=== PATIENT | male | born 1965 | race Caucasian/White ===

== ENCOUNTER 2018-11-07 11:26 | Outpatient (CLI) | payer BC ==
[~2018-11-07] VITALS: Ht 172.7 cm; Wt 106.6 kg
[2018-11-07] MEDS ORDERED: ASPI-586 PO (11:49)
== END 2018-11-07 12:18 | disposition home or self-care (01) ==
LOC: PREOP 11:26
PROVIDERS: ATTEND Surgery
DX: Z01.818 Encounter for other preprocedural examination (principal)

== ENCOUNTER 2018-11-14 09:17 | Day surgery (SDC) | payer BC ==
[~2018-11-14] VITALS: Ht 172.7 cm; Wt 106.6 kg
[~2018-11-14 09:17] MED LIST: ASPI-586 PO
[2018-11-14] MEDS ORDERED: LACTATED RINGERS 1,000 ML IV PRN (09:26)
[2018-11-14 09:30] VITALS: BP 146/86
[2018-11-14] MEDS ORDERED: ceFAZolin 2 GM IV Premixed 50 ML IV ONE (09:30)
--- NOTE | 2018-11-14 09:43 | Progress Note-Pre Operative ---
Pre-Operative Progress Note H&P Reviewed The H&P was reviewed, patient examined and no changes noted. Date Seen by Provider: Nov 14, 2018 Time Seen by Provider: 09:40 Date H&P Reviewed: Nov 14, 2018 Time H&P Reviewed: 09:40 Pre-Operative Diagnosis: symptomatic reducible umbilical hernia RENZO SHARPE MD Nov 14, 2018 09:43
[2018-11-14] MEDS ORDERED: ACETAMINOPHEN 325 MG TABLET PO PRN (09:45)
[2018-11-14] MEDS ORDERED: ONDANSETRON 4 MG/2 ML (SDV) Z0FRAN IVP PRN ×2 (09:45→13:00)
[2018-11-14] MEDS ORDERED: oxyCODONE/APAP 5/325MG (PERCOCET 5) TABLET PO PRN (09:45)
[2018-11-14] MEDS ORDERED: morphine INJ 10 MG/ML 1ML (SYR OR VIAL) IVP PRN (09:45)
[2018-11-14] MEDS ORDERED: HYDR-34 PO (09:47)
--- NOTE | 2018-11-14 09:48 | Discharge Inst-Surgical ---
D/C Lap Instructions-DELL New, Converted, or Re-Newed RX: RX on Chart Follow Up Appt in 2 weeks Activity as tolerated No driving for 24 hours No driving while on pain medications Incentive Spirometry use every 2 hours while awake Regular Diet Symptoms to Report: Fever over 101 degree F, Nausea/Vomiting Infection Signs and Symptoms to report: Increased redness, Foul odor of wound, Increased drainage Bathing instructions: May shower Operative Area Clean/Dry; Keep incision clean/dry If any problems/questions: Contact your physician or go to Emergency Room RENZO SHARPE MD Nov 14, 2018 09:48
[2018-11-14] MEDS ORDERED: BUP/EPI 0.5% 1:200,000 (SENSORCAINE) 30 ML VIAL ONE (10:28)
--- OUTSIDE RECORDS SUMMARY | 2018-11-14 10:52 | XMS REPORT | Continuity of Care Document ---
Author Author [facility] Address Unknown Phone Unavailable Allergies Active Description Code Type Severity Reaction Onset Reported/Identified Relationship to Patient Clinical Status Yes NO KNOWN DRUG ALLERGIES NO KNOWN DRUG ALLERG UNKNOWN Yes NO KNOWN DRUG ALLERGIES UNKNOWN NO KNOWN DRUG ALLERG Yes No Known Drug Allergies [id number] Drug Allergy Unknown N/A 11/07/2018 Medications Medication Packaging Start Date Stop Date Route Dosage Sig SMZ/TMP DS TAB (SEPTRA DS) (Bactrim DS) TAB 01/21/2017 01/21/2017 ONCE&1941 TETANUS,DIPTH,PERT ADULT INJ 0 (ADACEL SYRINGE) ml 01/21/2017 01/21/2017 ONCE&1942 NORMAL SALINE 250CC IV BAG INJ 0.9 % (NS 250CC IV BAG) ml 01/22/2017 01/22/2017 ONCE&0957 NORMAL SALINE 1000CC IV BAG INJ 0.9 % (NS 1000CC IV BAG) ml 04/08/2018 04/08/2018 ONCE&2128 PROCHLORPERAZINE VIAL INJ 10 MG/2CC (COMPAZINE VIAL) MG 04/08/2018 04/08/2018 ONCE&2229 NORMAL SALINE 500CC IV BAG INJ 0.9 % (NS 500CC IV BAG) ml 04/08/2018 04/08/2018 ONCE&2252 Problems Date Dx Coded Attending Type Code Diagnosis Diagnosed By 01/21/2017 JOMAR TABARES 682.3 CELLULITIS AND ABSCESS OF UPPER ARM AND FOREARM 01/21/2017 JOMAR TABARES L02.412 CUTANEOUS ABSCESS OF LEFT AXILLA 01/22/2017 Peter Quinones 682.3 CELLULITIS AND ABSCESS OF UPPER ARM AND FOREARM 01/22/2017 Peter Quinones L03.112 CELLULITIS OF LEFT AXILLA 12/28/2017 Scarlet Weaver 272.4 OTHER AND UNSPECIFIED HYPERLIPIDEMIA 12/28/2017 Scarlet Weaver 796.2 ELEVATED BLOOD PRESSURE READING WITHOUT DIAGNOSIS OF HYPERTENSION 12/28/2017 Scarlet Weaver W E78.5 HYPERLIPIDEMIA, UNSPECIFIED 12/28/2017 Scarlet Weaver W R03.0 ELEVATED BLOOD-PRESSURE READING, WITHOUT DIAGNOSIS OF HYPERTENSION 12/28/2017 Scarlet Weaver W 272.4 OTHER AND UNSPECIFIED HYPERLIPIDEMIA 12/28/2017 Scarlet Weaver W 796.2 ELEVATED BLOOD PRESSURE READING WITHOUT DIAGNOSIS OF HYPERTENSION 12/28/2017 Scarlet Weaver W E78.5 HYPERLIPIDEMIA, UNSPECIFIED 12/28/2017 Scarlet Weaver W R03.0 ELEVATED BLOOD-PRESSURE READING, WITHOUT DIAGNOSIS OF HYPERTENSION 04/08/2018 RAYSAJOMAR A 276.51 DEHYDRATION 04/08/2018 RAYSAJOMAR W 346.90 MIGRAINE, UNSPECIFIED, WITHOUT MENTION OF INTRACTABLE MIGRAINE, WITHOUT MENTION OF STATUS MIGRAINOSUS 04/08/2018 CHRISTIANOJANESJOMAR LAWSON E86.0 DEHYDRATION 04/08/2018 CHRISTIANOJANESJOMAR LAWSON G43.909 MIGRAINE, UNSP, NOT INTRACTABLE, WITHOUT STATUS MIGRAINOSUS 11/08/2018 DELL LU, RENZO Ot Z01.818 ENCOUNTER FOR OTHER PREPROCEDURAL EXAMIN Procedures There is no data. Results Test Result Range Thyroid Stimulating Hormone - 11/17/16 05:45 TSH 1.37 mIU/mL 0.32-5.00 BMP - 01/22/17 10:11 Anion Gap 13 6-14 BUN 15 mg/dL 5-25 Calcium 9.2 mg/dL 8.3-10.4 Chloride 107 mmol/L 95-114 CO2 23 mEq/L 22-33 Creat 1.48 mg/dL 0.50-1.50 eGFR 50 mL/min/1.73m2 >59 Glucose 164 mg/dL 70-110 Osmo 291 280-295 Potassium 4.1 mmol/L 3.5-5.3 Sodium 139 mmol/L 134-148 Thyroid Stimulating Hormone - 12/28/17 09:39 TSH 1.12 mIU/mL 0.32-5.00 PSA Yearly Screen - 12/28/17 09:39 PSA TOTAL 1.3 ng/mL 0.0-4.0 Comprehensive Metabolic Panel - 04/08/18 21:45 Albumin 3.8 g/dL 3.6-5.1 ALP 48 U/L 35-130 ALT 26 U/L 6-45 Anion Gap 15 6-14 AST 18 U/L 2-40 BUN 15 mg/dL 5-25 Calcium 9.3 mg/dL 8.3-10.4 Chloride 109 mmol/L 95-114 CO2 21 mEq/L 22-33 Creat 1.15 mg/dL 0.50-1.50 eGFR 66 mL/min/1.73m2 >59 Globulin 3.0 g/dL 2.3-3.5 Glucose 108 mg/dL 70-110 Osmo 292 280-295 Potassium 4.3 mmol/L 3.5-5.3 Sodium 141 mmol/L 134-148 TBil 0.4 mg/dL 0.2-1.2 TP 6.8 g/dL 6.0-8.3 Encounters ACCT No. Visit Date/Time Discharge Status Pt. Type Provider Facility Loc./Unit Complaint [id number] 07/16/2015 13:50:22 07/16/2015 23:59:59 CLS Outpatient Frank Lau [id number] 04/08/2018 21:02:00 04/08/2018 23:40:00 DIS Outpatient [facility] ER [id number] 12/28/2017 09:32:00 12/28/2017 23:59:00 DIS Outpatient Scarlet Weaver [id number] 01/22/2017 09:35:00 01/22/2017 12:20:00 DIS Outpatient Peter Quinones [id number] 01/21/2017 19:26:00 01/21/2017 20:24:00 DIS Outpatient [facility] ER [id number] 11/17/2016 05:52:00 11/17/2016 23:59:00 DIS Outpatient Scarlet Weaver [id number] 01/21/2017 19:42:25 Document Registration [id number] 11/07/2018 11:26:00 11/07/2018 12:18:00 DIS Outpatient RENZO SHARPE MD Via [facility] PREOP OPEN UMBILICAL HERNIA REPAIR [id number] 01/21/2014 09:03:00 01/21/2014 15:00:00 DIS Outpatient [id number] 01/15/2014 07:19:00 01/15/2014 23:59:59 CLS Outpatient [id number] 11/14/2018 09:17:00 ACT Outpatient DELL LU, RENZO Reynoso [facility] SDC UMBILICAL HERNIA
--- OUTSIDE RECORDS SUMMARY | 2018-11-14 10:52 | XMS REPORT | CCD ---
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 Weight Measured 235 lbs 03/22/2015 11:20 Initial VS Height 68 in 03/22/2015 11:20 Initial VS BMI (Body Mass Index) 35.73 kg/m^2 03/22/2015 11:20 Initial VS BSA (Body Surface Area) 2.26 m^2 03/22/2015 11:20 Initial VS BP Systolic 137 mmHg 03/22/2015 11:20 Initial VS BP Diastolic 78 mmHg 03/22/2015 11:20 Initial VS Respiratory Rate 20 bpm 03/22/2015 11:20 Initial VS Heart Rate 71 bpm 03/22/2015 11:20 Initial VS O2 % BldC Oximetry 97 % 03/22/2015 11:20 Initial VS Body Temperature 97.1 degrees 03/22/2015 11:20 Initial VS BP Systolic 150 mmHg 04/15/2015 14:45 Most Recent VS BP Diastolic 97 mmHg 04/15/2015 14:45 Most Recent VS Respiratory Rate 18 bpm 04/15/2015 14:45 Most Recent VS Heart Rate 75 bpm 04/15/2015 14:45 Most Recent VS O2 % BldC Oximetry 95 % 04/15/2015 14:45 Most Recent VS Body Temperature 97.9 degrees 04/15/2015 14:45 Most Recent VS Allergies Allergy Code Allergy Type Reaction Status No Known Drug Allergies 0 No known drug allergies Active Procedures Procedure Code Procedure Type Date REVISION OF HIP REPLACEMENT, ACETAB 0071 ICD-9 CM, Volume 3 04/13/2015 HIP BEARING SURFACE METAL ON POLY 0074 ICD-9 CM, Volume 3 04/13/2015 PT GROUP THERAPY 519258187 SNOMED CT 04/15/2015 PT GAIT TRAINING/STAIRS EA [address] 04/15 PT GROUP THERAPY 720013294 SNOMED CT 04/15/2015 OT EVALUATION 519306101 SNOMED CT 04/14/2015 PT GROUP THERAPY 639059333 SNOMED CT 04/14/2015 PT GAIT TRAINING/STAIRS EA [address] 04/14 PT GROUP THERAPY 099444137 SNOMED CT 04/14/2015 PT THERAPEUTIC ACT. ONE ON ONE EA [address] 04/13/2015 PT EVALUATION 221180108 SNOMED CT 04/13/2015 HIP [address] 04/13/2015 BEDSIDE GLUCOSE 42757655 SNOMED CT 04/15/2015 BEDSIDE GLUCOSE 01086444 SNOMED CT 04/15/2015 BEDSIDE GLUCOSE 36144286 SNOMED CT 04/14/2015 BEDSIDE GLUCOSE 63029706 SNOMED CT 04/14/2015 BEDSIDE GLUCOSE 99185536 SNOMED CT 04/14/2015 BEDSIDE GLUCOSE 11046486 SNOMED CT 04/13/2015 BEDSIDE GLUCOSE 05460552 SNOMED CT 04/14/2015 BEDSIDE GLUCOSE 64000298 SNOMED CT 04/13/2015 BEDSIDE GLUCOSE 45308755 SNOMED CT 04/13/2015 BASIC METABOLIC PANEL 233721443 SNOMED CT 04/15/2015 BASIC METABOLIC PANEL 119292486 SNOMED CT 04/14/2015 CBC W/ AUTO DIFF (RFLX MAN DIFF IF IND) 6056555 SNOMED CT 04/15/2015 CBC W/ AUTO DIFF (RFLX MAN DIFF IF IND) 4693727 SNOMED CT 04/14/2015 BEDSIDE GLUCOSE 93391548 SNOMED CT 04/13/2015 INCENTIVE SPIROMETRY EA [address] 04/2015 OXYGEN/HOUR 452188829 SNOM[address] CT 04/13/2015 BAN AERO ECLIPSE TREATMENT 85824313 SNOMED CT 04/13/2015 BAN AERO ECLIPSE TREATMENT 03621782 SNOMED CT 04/13/2015 BAN AERO ECLIPSE TREATMENT 36940800 SNOMED CT 04/14/2015 BAN AERO ECLIPSE TREATMENT 42967917 SNOMED CT 04/14/2015 BAN AERO ECLIPSE TREATMENT 35835565 SNOMED CT 04/15/2015 BAN AERO ECLIPSE TREATMENT 53635297 SNOMED CT 04/15/2015 ^CBC W/AUTO DIFF 9588989 SNOMED CT 04/14/2015 ^CBC W/AUTO DIFF 6025518 SNOMED CT 04/15/2015 History of Immunizations Unknown or Not Available. 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 Post op pain 927511344 04/13/2015 Active Results BASIC METABOLIC PANEL - Collect Date/Time: 04/15/2015 06:05 Test Name Code Test Result Test Units Test Ref Range GLUCOSE 2345-7 113 MG/DL L=70 H=100 SODIUM 2951-2 140 MEQ/L L=135 H=148 POTASSIUM 2823-3 4.1 MEQ/L L=3.5 H=5.3 CHLORIDE 2075-0 108 MEQ/L L=96 H=110 CO2 2028-9 22 MEQ/L L=22 H=29 BUN 3094-0 14 MG/DL L=8 H=22 CREATININE 2160-0 1.1 MG/DL L=0.6 H=1.6 CALCIUM 54943-4 8.9 MG/DL L=8.2 H=10.6 AGE 50 yrs GFR NonAA 70 GFR AA 85 eGFR >60 N/A eGFR AA* >60 N/A BASIC METABOLIC PANEL - Collect Date/Time: 04/14/2015 05:55 Test Name Code Test Result Test Units Test Ref Range GLUCOSE 2345-7 108 MG/DL L=70 H=100 SODIUM 2951-2 138 MEQ/L L=135 H=148 POTASSIUM 2823-3 4.2 MEQ/L L=3.5 H=5.3 CHLORIDE 2075-0 109 MEQ/L L=96 H=110 CO2 2028-9 21 MEQ/L L=22 H=29 BUN 3094-0 13 MG/DL L=8 H=22 CREATININE 2160-0 1.1 MG/DL L=0.6 H=1.6 CALCIUM 03557-0 8.6 MG/DL L=8.2 H=10.6 AGE 50 yrs GFR NonAA 70 GFR AA 85 eGFR >60 N/A eGFR AA* >60 N/A BEDSIDE GLUCOSE - Collect Date/Time: 04/14/2015 21:10 Test Name Code Test Result Test Units Test Ref Range GLUCOSE POCT 131 MG/DL L=70 H=100 BEDSIDE GLUCOSE - Collect Date/Time: 04/14/2015 17:51 Test Name Code Test Result Test Units Test Ref Range GLUCOSE POCT 128 MG/DL L=70 H=100 BEDSIDE GLUCOSE - Collect Date/Time: 04/14/2015 12:14 Test Name Code Test Result Test Units Test Ref Range GLUCOSE POCT 103 MG/DL L=70 H=100 BEDSIDE GLUCOSE - Collect Date/Time: 04/14/2015 06:03 Test Name Code Test Result Test Units Test Ref Range GLUCOSE POCT 107 MG/DL L=70 H=100 BEDSIDE GLUCOSE - Collect Date/Time: 04/13/2015 20:43 Test Name Code Test Result Test Units Test Ref Range GLUCOSE POCT 173 MG/DL L=70 H=100 BEDSIDE GLUCOSE - Collect Date/Time: 04/13/2015 17:38 Test Name Code Test Result Test Units Test Ref Range GLUCOSE POCT 124 MG/DL L=70 H=100 BEDSIDE GLUCOSE - Collect Date/Time: 04/13/2015 10:20 Test Name Code Test Result Test Units Test Ref Range GLUCOSE POCT 128 MG/DL L=70 H=100 BEDSIDE GLUCOSE - Collect Date/Time: 04/13/2015 06:50 Test Name Code Test Result Test Units Test Ref Range GLUCOSE POCT 107 MG/DL L=70 H=100 CBC W/ AUTO DIFF (RFLX MAN DIFF IF IND) - Collect Date/Time: 04/15/2015 06:05 Test Name Code Test Result Test Units Test Ref Range WBC 11927-4 8.7 TH/CMM L=4.5 H=10.8 RBC 789-8 4.04 ML/CMM L=4.70 H=6.10 HGB 718-7 11.9 G/DL L=14.0 H=18.0 HCT 4544-3 35.9 % L=42.0 H=52.0 MCV 89 FL L=81 H=99 MCH 29.5 PG L=27.0 H=33.0 MCHC 33.1 G/DL L=31.0 H=36.0 RDW SD 41 FL L=36 H=50 RDW CV 12.8 % L=0.0 H=14.8 MPV 10.8 FL L=9.3 H=12.5 PLT 777-3 193 TH/CMM L=130 H=440 NRBC# 0.00 TH/CMM L=0.00 H=0.00 NRBC% 0.0 /100WBC L=0.0 H=2.0 %NEUT 69.8 % %LYMP 19.3 % %MONO 7.5 % %EOS 3.3 % %BASO 0.1 % #NEUT 6.07 TH/CMM L=2.10 H=8.20 #LYMP 1.68 TH/CMM L=0.90 H=5.20 #MONO 0.65 TH/CMM L=0.16 H=1.00 #EOS 0.29 TH/CMM L=0.00 H=0.80 #BASO 0.01 TH/CMM L=0.00 H=0.20 MANUAL DIFF NOT IND N/A CBC W/ AUTO DIFF (RFLX MAN DIFF IF IND) - Collect Date/Time: 04/14/2015 05:55 Test Name Code Test Result Test Units Test Ref Range WBC 08042-6 9.4 TH/CMM L=4.5 H=10.8 RBC 789-8 4.22 ML/CMM L=4.70 H=6.10 HGB 718-7 12.5 G/DL L=14.0 H=18.0 HCT 4544-3 37.5 % L=42.0 H=52.0 MCV 89 FL L=81 H=99 MCH 29.6 PG L=27.0 H=33.0 MCHC 33.3 G/DL L=31.0 H=36.0 RDW SD 41 FL L=36 H=50 RDW CV 12.9 % L=0.0 H=14.8 MPV 10.3 FL L=9.3 H=12.5 PLT 777-3 201 TH/CMM L=130 H=440 NRBC# 0.00 TH/CMM L=0.00 H=0.00 NRBC% 0.0 /100WBC L=0.0 H=2.0 %NEUT 71.6 % %LYMP 19.3 % %MONO 7.7 % %EOS 1.3 % %BASO 0.1 % #NEUT 6.72 TH/CMM L=2.10 H=8.20 #LYMP 1.81 TH/CMM L=0.90 H=5.20 #MONO 0.72 TH/CMM L=0.16 H=1.00 #EOS 0.12 TH/CMM L=0.00 H=0.80 #BASO 0.01 TH/CMM L=0.00 H=0.20 MANUAL DIFF NOT IND N/A Active Medications Medication Code Dose Units Frequency Route Modification Start Date/Time Outpatient Therapy 0 1 <OTHER> WEEKLY <OTHER > 04/15/2015 15:14 acetaminophen-HYDROcodone bitartrate 5MG-325MG Oral Tablet 421193 1 TABLET NEEDED EVERY 4 HR BY MOUTH FOR PAIN 04/15/2015 15:11 Aspirin 325MG Oral Tablet, Enteric Coated 602519 325 MILLIGRAMS TWO TIMES A DAY BY MOUTH 04/15/2015 15: 11 Crestor 5MG Oral Tablet 504332 5 MILLIGRAMS AT BEDTIME ORAL 04/15/2015 15:11 metFORMIN 500MG Oral Tablet 906924 500 MILLIGRAMS TWO TIMES A DAY ORAL 04/15/2015 15:11 Medications Administered During Visit Medication Dose Units Frequency Route Date/ Time of Last Dose DUONEB [IPRATROPIUM/ALBUTEROL] 0.5/3 MG 1 UD TID INHALE 04/15/2015 14:02 NS 1000 ML IV [PREDEFINED] (7983) CONT IV IV 04/13/2015 23:12 CEFAZOLIN [ANCEF] 2 GM IV PREMIX BAG Q6H IVPB 04/14/2015 05:50 ASPIRIN ENTERIC COATED TAB : 325MG 325 MG BID PO 04/15/2015 07:54 TRANEXAMIC ACID INJ 1000MG/10ML VIAL 1000 EA X1 IV 04/13/2015 11:07 VITAMIN (LH SUB FOR ALL MULTIVITAMINS) 1 TAB DAILY PO 04/15/2015 07:54 DOCUSATE SODIUM 100 MG [COLACE] CAPSULE 100 MG BID PO 04/15/2015 07:54 HYDROmorphone SYR(DILAUDID)SYR:2MG/ML 0.5 MG PRN Q 1 HR IVP 04/13/2015 16:35 KETOROLAC (TORADOL) VIAL: 30 MG/ML 1 ML 30 MG Q6H IVP 04/15/2015 11:11 NORCO [HYDROCODONE/APAP] 5/325MG TAB 1 TAB PRN PO 04/15/2015 14:55 INSULIN [REGULAR] 100UNITS/ML (SQ) 10ML Unit(s) PRN SUB Q 04/15/2015 12:12 SIMVASTATIN [ZOCOR] TABLET: 20 MG 20 MG HS PO 04/14/2015 20:24 METFORMIN [GLUCOPHAGE] TABLET: 500 MG 500 MG BIDM PO 04/15/2015 07:55 Encounters Encounter Diagnosis Diagnosis Code [place] [address] 04/13/2015 Social History Smoking Status Code Start Date End Date Never smoker [id number] Patient Decision Aids Patient Decision Aid Narcotic Pain Management Discharge Instructions You were admitted to [facility] on 04/13/2015 with a principal diagnosis of OTHER MECHANICAL COMPLICATION OF OR. You had the following procedures done: REVISION OF HIP REPLACEMENT, ACETAB HIP BEARING SURFACE METAL ON POLY You were discharged from [facility] on 04/15/2015. Should you have any questions prior to discharge, please contact a member of your healthcare team. If you have left the hospital and have any questions, please contact your primary care physician. HOME DIET: 1800 ADA diet CONDITION AT DISMISSAL Stable. HOME MEDS RETURNED TO PATIENT: N/A. SCRIPTS WRITTEN BY DOCTOR GIVEN TO PATIENT? Thornton 5, Aspirin 325mg CONTACT PHYSICIAN IF YOU EXPERIENCE ANY: Odor or drainage from incision, pain unrelieved by pain medication. INSTRUCTIONS GIVEN AND DISCHARGE TO: Patient. VOICES UNDERSTANDING OF INSTRUCTIONS: Yes. INSTRUCTIONS GIVEN BY (TYPE IN NAME AND DATE) Lisset Kaye RN PERSONAL ITEMS RETURNED : Yes. CHIEF COMPLAINT: C/O PAIN TO L HIP Chief Complaint and Reason For Visit Chief Complaint Date of Onset REVISION L INOCENTE Function Status Unknown or Not Available. Plan of Care Unknown or Not Available. Referral/Transition of Care Unknown or Not Available.
[2018-11-14] MEDS ORDERED: fentaNYL INJECTION 100 MCG/2 ML AMP ONE (11:11)
[2018-11-14] MEDS ORDERED: MIDAZOLAM 2 MG/2 ML (VERSED) VIAL ONE (11:11)
[2018-11-14] MEDS ORDERED: proPOfol 200 MG/20 ML (DIPRIVAN) VIAL IV ONE (11:39)
[2018-11-14] MEDS ORDERED: ONDANSETRON 4 MG/2 ML (SDV) Z0FRAN ONE (11:39)
[2018-11-14] MEDS ORDERED: SUCCINYLCHOLINE INJ 100 MG/5 ML SYR ONE (11:39)
[2018-11-14] MEDS ORDERED: LIDOCAINE PF 2% 5 ML (XYLOCAINE) VIAL ONE (11:39)
[2018-11-14] MEDS ORDERED: ROCURONIUM 10 MG/ML 5 ML SYRINGE IV ONE (11:39)
[2018-11-14] MEDS ORDERED: DESFLURANE (SUPRANE) 15 ML INHAL SOLN ONE ×5 (11:39→12:20)
--- NOTE | 2018-11-14 12:07 | Anesthesia-General Post-Op ---
General Patient Condition Mental Status/LOC: Same as Preop Cardiovascular: Satisfactory Nausea/Vomiting: Absent Respiratory: Satisfactory Pain: Controlled Complications: Absent Post Op Complications Complications None Follow Up Care/Instructions Patient Instructions None needed. Anesthesia/Patient Condition Patient Condition Patient is doing well, no complaints, stable vital signs, no apparent adverse anesthesia problems. No complications reported per nursing. REGINALDO MOODY CRNA Nov 14, 2018 12:06
[2018-11-14] MEDS ORDERED: morphine INJ 10 MG/ML 1ML (SYR OR VIAL) IVP ONE (13:00)
[2018-11-14] MEDS ORDERED: MEPERIDINE (DEMEROL) INJ 50 MG/ML IVP ONE (13:00)
[2018-11-14] MEDS ORDERED: PROMETHAZINE INJ 25 MG/ML (PHENERGAN) AMP IVP ONE (13:00)
[2018-11-14] MEDS ORDERED: HYDROmorphone 2 MG/ML VIAL (DILAUDID) IV ONE (13:00)
[2018-11-14 13:45] VITALS: BP 125/75
[2018-11-14 14:15] VITALS: BP 130/73
[2018-11-14 14:35] VITALS: BP 130/73
--- NOTE | 2018-11-25 15:28 | OPERATIVE REPORT ---
DATE OF SERVICE: 11/14/2018 ATTENDING PRIMARY CARE PHYSICIAN: Dr. Weaver. PREOPERATIVE DIAGNOSIS: Incarcerated umbilical hernia. POSTOPERATIVE DIAGNOSIS: Incarcerated umbilical hernia. PROCEDURE PERFORMED: Open repair and reduction of incarcerated umbilical hernia with mesh. SURGEON: Renzo Sharpe MD. ANESTHESIA: General endotracheal. ESTIMATED BLOOD LOSS: Minimal. FINDINGS: Incarcerated umbilical hernia with omentum within the hernia sac. DISPOSITION: The patient tolerated the procedure well. INDICATIONS: The patient is a 53-year-old male who was initially seen in the office on 11/05/2018 for symptomatic umbilical hernia. He had reported that he noticed it one year previous; however, had grown larger in size and become more painful. Upon examination, he was found to have an initial reducible hernia, which was 2.5 cm in size; however, he is eating well and having bowel movements. Upon examination preoperatively, the hernia was incarcerated. He did not report any fever or chills and again was eating well and having normal bowel movements. DESCRIPTION OF PROCEDURE: The patient was brought to the operating room, laid supine on the table. After adequate IV pain and sedating medications and general endotracheal intubation, the abdomen was prepped and draped in standard surgical fashion. A 0.5% Marcaine with epinephrine was used to anesthetize the overlying skin in the supraumbilical rim. A crescent-shaped skin incision was made using a 15-blade. Subcutaneous tissue was then dissected using electrocautery. Hernia sac was identified and completely dissected down to the fascial base using electrocautery as well as blunt dissection. The defect was approximately 3 cm in size. The hernia sac was then opened using Metzenbaum scissors and incarcerated omentum was identified. A part of this was resected using electrocautery with visualization of good hemostasis. A 6.4 cm circular coated polypropylene mesh was then placed in the defect and transfascial sutures placed transfascially in an interrupted manner concentrically to the mesh. An #0 Prolene suture was used. Good hemostasis was observed. The base of the umbilicus was then tacked to the mesh and the subcutaneous tissue was reapproximated using 3-0 Vicryl interrupted suture and the skin closed using 4-0 Monocryl running subcuticular suture. Wound was then cleaned and covered with Dermabond. The umbilicus was then packed with tonsil sponges followed by 4 x 4 followed by a large Op-Site and abdominal binder. The patient tolerated the procedure well. We will start IV normal pain medication as well as a clear liquid diet. Once he is tolerating clears, has good pain control with oral pain medications and ambulating well, we will discharge him home. He will be instructed to do no heavy lifting or exertion for the next two weeks. Job ID: [id number] DocumentID: [id number] Dictated Date: 11/25/2018 12:41:19 Mail Handlers Supervisor Date: 11/25/2018 15:28:27 Dictated By: RENZO SHARPE MD
== END 2018-11-14 14:40 | disposition home or self-care (01) ==
LOC: SDC 09:17
PROVIDERS: ATTEND Surgery
DX: K42.0 Umbilical hernia with obstruction, without gangrene (principal); I10 Essential (primary) hypertension; E78.5 Hyperlipidemia, unspecified; G47.33 Obstructive sleep apnea (adult) (pediatric); K21.9 Gastro-esophageal reflux disease without esophagitis; E11.9 Type 2 diabetes mellitus without complications; Z79.82 Long term (current) use of aspirin
CPT/HCPCS: 87081; 88302; 94664

== ENCOUNTER → 2019-02-21 | Outpatient (CLI) | payer BC ==
[~2019-02-21] VITALS: Ht 172.7 cm; Wt 106.6 kg
[~2019-02-21] MED LIST changes: +GADOBUTROL 7.5 MMOL/7.5 ML (GADAVIST) VIAL IV ONE; +HYDR-34 PO; +IOHEXOL 240 MGI/ML 20 ML (OMNIPAQUE) VIAL IV ONE; +LIDOCAINE 1% INJ 20 ML 20 ML VIAL INJ ONE
--- NOTE | 2019-02-21 14:54 | Diagnostic Imaging Report ---
INDICATION: Right shoulder pain. Patient presents for contrast injection using fluoroscopy prior to MRI. PROCEDURE: Patient was brought to the procedure room and placed in the supine position. Right shoulder was prepped and draped in the usual sterile fashion. A small amount of 1% lidocaine was utilized for local anesthesia. 21-gauge needle was advanced into the right shoulder at the rotator interval. 50 mL solution of iodinated contrast, normal saline and gadolinium was injected under fluoroscopic observation. Needle was drawn and hemostasis was obtained. 18 seconds of fluoroscopy was utilized. Images demonstrate calcification in the acromiohumeral space consistent with calcific tendinitis of the rotator cuff. There is contrast within the right shoulder capsule. IMPRESSION: 1. Successful fluoroscopically assisted right shoulder injection of gadolinium contrast solution prior to MRI. 2. Findings consistent with calcific tendinitis of the rotator cuff. Dictated by: Dictated on workstation # [id number]
--- NOTE | 2019-02-21 15:30 | Diagnostic Imaging Report ---
PROCEDURE: MRI upper extremity any joint with contrast right. TECHNIQUE: Multiplanar, multisequence MRI examination of the right shoulder was performed following intra-articular injection of contrast. INDICATION: Right shoulder pain, decreased range of motion. COMPARISON: None. FINDINGS: No acute fractures seen in the right shoulder. There is a somewhat heterogeneous lesion in the right humeral neck with a lobulated circumscribed margins, measuring 1 x 1.6 x 1.2 cm in size, most consistent with an enchondroma . There is superior migration of the humeral head. The joint is filled with contrast. There is remodeling and spurring at the undersurface of the acromion. There is a large full-thickness rotator cuff tear in the right shoulder measuring approximately 4 cm AP, with retraction of the supraspinatus to the glenohumeral joint. There is significant atrophy of the supraspinatus and infraspinatus musculature. The teres minor tendon appears intact. The subscapularis tendon demonstrates high-grade partial-thickness tearing of the superior fibers at the articular surface, with severe tendinosis of the intra-articular long head of the biceps tendon. The biceps tendon is displaced medially from the bicipital groove. There is degenerative tearing of the superior, posterior, and anterior glenoid labrum. No large para-labral cyst is seen. The acromion has a flat undersurface with remodeling from the humeral head. There are moderate degenerative changes in the right acromioclavicular joint. The coracoclavicular and coracoacromial ligaments appear intact. The soft tissues about the right shoulder are otherwise unremarkable. IMPRESSION: 1. Large full-thickness tear of the right rotator cuff involving the supraspinatus and infraspinatus, with tendon retraction and muscular atrophy. There is loss of the acromiohumeral space with subacromial remodeling. 2. High-grade partial-thickness tear of the subscapularis tendon. 3. Severe tendinopathy of the intra-articular long head of the biceps tendon, which is displaced medially from the bicipital groove. Dictated by: Dictated on workstation # [id number]
== END ==
LOC: RAD 12:42
PROVIDERS: ATTEND Nurse Practitioner
DX: S46.811A Strain of other muscles, fascia and tendons at shoulder and upper arm level, right arm, initial encounter (principal); S43.431A Superior glenoid labrum lesion of right shoulder, initial encounter; M75.121 Complete rotator cuff tear or rupture of right shoulder, not specified as traumatic
CPT/HCPCS: 23350; 73040; 73219

== ENCOUNTER → 2022-04-03 | Outpatient (CLI) | payer BC ==
[~2022-04-03] MED LIST changes: -GADOBUTROL 7.5 MMOL/7.5 ML (GADAVIST) VIAL IV ONE; -IOHEXOL 240 MGI/ML 20 ML (OMNIPAQUE) VIAL IV ONE; -LIDOCAINE 1% INJ 20 ML 20 ML VIAL INJ ONE
--- NOTE | 2022-04-03 09:34 | Diagnostic Imaging Report ---
Indication: Right ankle pain. Time of Exam: 8:59 AM 3 views of the right ankle were obtained. Alignment is normal. Ankle mortise is well maintained. Talar dome is smooth. There is a well-corticated osseous density adjacent to the medial malleolus, likely an old avulsion. No acute fracture is identified. There is a plantar calcaneal spur noted. Impression: No acute bony abnormality is detected. Dictated by: Dictated on workstation # [id number]
--- NOTE | 2022-04-03 09:36 | Diagnostic Imaging Report ---
INDICATION: Pain. 3 views were obtained. FINDINGS: The alignment is normal. There are mild degenerative changes. There is no fracture or dislocation. Soft tissues grossly unremarkable. IMPRESSION: Mild 3 compartment osteoarthritic change, otherwise unremarkable. Dictated by: Dictated on workstation # [id number]
== END ==
LOC: RAD FS 08:43
PROVIDERS: ATTEND Nurse Practitioner
DX: M17.11 Unilateral primary osteoarthritis, right knee (principal); M25.571 Pain in right ankle and joints of right foot
CPT/HCPCS: 73562; 73610

== ENCOUNTER → 2022-10-26 | Outpatient (CLI) | payer BC ==
[~2022-10-26] VITALS: Ht 172.7 cm; Wt 105.0 kg
[~2022-10-26] MED LIST changes: +DULA4.5P SQ; +EZET10TA17 PO; +METF-397 PO; +TADA5TAB4 PO
== END | disposition home or self-care (01) ==
LOC: PREOP 05:32
PROVIDERS: ATTEND Orthopaedic Surgery
DX: Z01.818 Encounter for other preprocedural examination (principal)

== ENCOUNTER 2022-11-01 07:42 | Day surgery (SDC) | payer BC ==
[~2022-11-01] VITALS: Ht 172 cm; Wt 105.0 kg
[2022-11-01] VITALS (9 sets, daily range): BP systolic 95–133; BP diastolic 71–96
[~2022-11-01 07:42] MED LIST changes: +HYDROcodone/APAP 7.5 MG/325 MG (LORTAB, LORCET PLUS) TABLET PO PRN
[2022-11-01] MEDS ORDERED: fentaNYL INJ 100 MCG/2 ML AMP ONE (07:49)
[2022-11-01] MEDS ORDERED: MIDAZOLAM 2 MG/2 ML (VERSED) VIAL ONE (07:49)
[2022-11-01] MEDS ORDERED: LIDOCAINE PF 2% 5 ML (XYLOCAINE) VIAL ONE (07:49)
[2022-11-01] MEDS ORDERED: proPOfol 200 MG/20 ML (DIPRIVAN) VIAL IV ONE (07:49)
[2022-11-01] MEDS ORDERED: ONDANSETRON 4 MG/2 ML (SDV) Z0FRAN ONE (07:49)
[2022-11-01] MEDS ORDERED: SEVOFLURANE (ULTANE) 15 ML INHAL SOLN ONE ×2 (07:49→09:28)
[2022-11-01] MEDS ORDERED: BUPIVACAINE 0.25% 30 ML (SENSORCAINE) VIAL ONE (08:01)
[2022-11-01] MEDS ORDERED: morphine PF (DURAMORPH) 10 MG/10 ML AMP ONE (08:01)
--- NOTE | 2022-11-01 08:07 | Progress Note-Pre Operative ---
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
--- NOTE | 2022-11-01 08:08 | Progress Note-Post Operative ---
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
[2022-11-01] MEDS ORDERED: ceFAZolin INJECTION 2,000 MG ONE (08:26)
[2022-11-01] MEDS ORDERED: NS (IVPB) 50 ML ONE (08:26)
[2022-11-01] MEDS ORDERED: LACTATED RINGERS 1,000 ML IV PRN (08:30)
[2022-11-01] MEDS ORDERED: ceFAZolin INJECTION 2,000 MG in NS (IVPB) 50 ML IV ONE (08:30)
[2022-11-01] MEDS ORDERED: GLYCOPYRROLATE 0.2 MG/ML (ROBINUL) 2 ML VIAL ONE (09:14)
[2022-11-01] MEDS ORDERED: KETOROLAC 30 MG/ML VIAL ONE (09:21)
[2022-11-01] MEDS: MEPERIDINE (DEMEROL) INJ 50 MG/ML IVP ONE ×2 (09:35→10:26)
[2022-11-01] MEDS: ONDANSETRON 4 MG/2 ML (SDV) Z0FRAN IVP PRN ×2 (09:37→10:26)
[2022-11-01] MEDS ORDERED: HYDROmorphone 2 MG/ML VIAL (DILAUDID) IV ONE (09:45)
--- NOTE | 2022-11-01 11:43 | Anesthesia-General Post-Op ---
General Patient Condition Mental Status/LOC: Same as Preop Cardiovascular: Satisfactory Nausea/Vomiting: Absent Respiratory: Satisfactory Pain: Controlled Complications: Absent Post Op Complications Complications None Follow Up Care/Instructions Patient Instructions None needed. Anesthesia/Patient Condition Patient Condition Patient is doing well, no complaints, stable vital signs, no apparent adverse anesthesia problems. No complications reported per nursing. D/C home per [facility] Criteria: Yes JUSTYN ACE CRNA Nov 01, 2022 11:43
--- NOTE | 2022-11-01 18:19 | OPERATIVE REPORT ---
DATE OF SERVICE: 11/01/2022 PREOPERATIVE DIAGNOSES: 1. Right ankle chondromalacia of the talus. 2. Right ankle chondromalacia of the tibia. 3. Right ankle distal tibial osteophyte. POSTOPERATIVE DIAGNOSES: 1. Right ankle chondromalacia of the talus. 2. Right ankle distal tibial osteophyte. 3. Right ankle dorsal talus osteophyte. PROCEDURES: 1. Right ankle arthroscopic chondroplasty of the talus. 2. Right ankle arthroscopic osteophyte excision of the tibia. 3. Right ankle osteophyte excision of the talus. SURGEON: Clark Hung MD SURTASS ANALYST: Lon Sutton, who assisted throughout the procedure and closed the incisions. ANESTHESIA: General endotracheal by Duane Peñaloza CRNA. ESTIMATED BLOOD LOSS: Minimal. DRAINS: None. COMPLICATIONS: None. POSTOPERATIVE PLANS: Progressive weightbearing as tolerated. The patient was transferred to the recovery room awake and stable condition. STATEMENT OF MEDICAL NECESSITY: The patient is a 57-year-old gentleman with complaints of right ankle pain, catching, locking and swelling. Radiographs and MRI revealed diffuse chondral loss with joint space narrowing, osteophyte formation in his tibiotalar joint. The patient was counseled regarding treatment options. He wanted to avoid a total ankle arthroplasty or an ankle arthrodesis. He understood that an arthroscopy could help with his mechanical symptoms, but would not cure his arthritic symptoms and he may require further intervention in the future. DESCRIPTION OF PROCEDURE: After risks and benefits of the procedure were discussed and questions were answered, informed consent was signed and placed on the chart. The operative site was confirmed in the preoperative holding and initialed by surgeon. The patient was then transferred to the operating room. After adequate level of general endotracheal anesthetic was obtained, timeout was called confirming the operative site. The right lower extremity was prepped and draped in the usual sterile fashion. Two percutaneous incisions were made, one just lateral to the peroneus tertius and one just medial to the anterior tibialis. The ankle joint was injected with 20 mL of fluid prior to this and a needle localization was used to ensure adequate placement of the portals. A diagnostic arthroscopy was carried out, which revealed diffuse chondral loss over the distal aspect of the tibia with an osteophyte formation and impingement noted with dorsiflexion due to an osteophyte off the distal tibia as well as the dorsal talus. There was an area of grade III chondral flap and an 8 biter on the anterior aspect of the talus as well. The unstable chondral flaps in the talus were debrided with a shaver back to a stable edge and a bur was used to resect the anterior tibial osteophyte as well as the dorsal talar osteophyte, which alleviated the impingement lesion with no impingement noted after resection. The ankle joint was copiously irrigated. The portal sites were closed with 4-0 nylon in simple interrupted fashion. The ankle was injected with Duramorph. Port sites were infiltrated with plain Marcaine. Soft dressing was applied and the patient was transferred to recovery room awake and in stable condition. Job ID: [id number] DocumentID: [id number] Dictated Date: 11/01/2022 09:40:15 Dry Cleaner Hand Date: 11/01/2022 18:17:00 Dictated By: CLARK HUNG MD
== END 2022-11-01 11:10 | disposition home or self-care (01) ==
LOC: SDC 07:42
PROVIDERS: ATTEND Orthopaedic Surgery
DX: M94.271 Chondromalacia, right ankle and joints of right foot (principal); M25.771 Osteophyte, right ankle; E11.9 Type 2 diabetes mellitus without complications; G47.33 Obstructive sleep apnea (adult) (pediatric); F17.200 Nicotine dependence, unspecified, uncomplicated; M19.071 Primary osteoarthritis, right ankle and foot
CPT/HCPCS: 82947; 87081